=== PATIENT | male | born 1995 | race Caucasian/White ===

== ENCOUNTER 2018-09-08 00:05 | Emergency (ER) | payer OTHER ==
[~2018-09-08] VITALS: Ht 172.7 cm; Wt 72.7 kg
[2018-09-08 00:10] VITALS: Ht 172.7 cm; Wt 72.7 kg
[2018-09-08] MEDS ORDERED: CLEOCIN HCL300 MG PO (00:51)
[2018-09-08 01:17] VITALS: BP 125/78
== END 2018-09-08 01:17 | disposition home or self-care (01) ==
LOC: D.ER 00:05
DX: L02.01 Cutaneous abscess of face (principal)